=== PATIENT | female | born 1980 | race Caucasian/White ===

== ENCOUNTER 2021-02-05 22:57 | Emergency (ER) | payer MEDICAID ==
[2021-02-05] MEDS ORDERED: HYDROmorphone 1 MG/ML Syringe IVPUSH ONE ×2 (23:07→23:36)
[2021-02-05] MEDS ORDERED: Ondansetron 4 MG/2 ML SDV IVPUSH ONE (23:07)
--- NOTE | 2021-02-05 23:13 | EDM.PDOC ---
ED HPI GENERAL MEDICAL PROBLEM - General Chief Complaint: Lower Extremity Injury/Pain Stated Complaint: YUMIKO AMB Time Seen by Provider: 02/05/21 23:00 Source of Information: Reports: Patient History Limitations: Reports: No Limitations - History of Present Illness INITIAL COMMENTS - FREE TEXT/NARRATIVE: Ms. Gomez is a very pleasant 40-year-old woman who is now brought to EMS with a right ankle injury. She states that she fell off of a barstool at home around 22:00 tonight, entangling her right foot in the foot rest. There is a visible deformity to the right ankle, with the foot appearing to be laterally dislocated. She states that she is otherwise uninjured. No prior right ankle injury. A foam splint was applied per EMS. EMS additionally gave her 100 mcg of fentanyl en route to the ED. The patient states that she drinks 2 shots of alcohol tonight, but later acknowledged that she drinks 1 pint of vodka per day. Her last food intake was yesterday, 02/04/2021. Here in the ED, the patient was initially found to be tachycardic at 119 bpm. She is otherwise hemodynamic stable, afebrile, saturating 99% on room air. She appears to be somewhat uncomfortable, although in no acute distress. Prior to tonight, the patient denies having a recent fever, chills, sore throat, ear pain, nasal or sinus congestion, cough, dyspnea, chest pain, palpitations, nausea, vomiting, constipation, diarrhea, abdominal pain, urinary symptoms, recent weight gain or weight loss, recent bloody bowel movements or black bowel movements, recent joint aches, headaches, or rashes. The patient does not have a PCP. Her Neurosurgeon is Dr. Kristofer Coats. She has received a single Pfizer vaccination. No influenza vaccination this season. Right Ankle Pain Score (Numeric/FACES): 9 - Related Data Allergies Allergy/AdvReac Type Severity Reaction Status Date / Time No Known Allergies Allergy Verified 01/10/15 12:02 Home Meds: Home Meds Amoxicillin/Clavulanate K [Augmentin 875 MG/125 MG] 1 tab PO Q12HR #20 tablet 01/10/15 [Rx] Ciprofloxacin HCl/Dexameth [Ciprodex Otic Suspension] 7.5 ml EARLF BID #1 bottle 01/10/15 [Rx] traMADol [Ultram] 50 mg PO Q6H PRN #20 tab 01/10/15 [Rx] Acetaminophen/oxyCODONE [Percocet 325-5 MG] 1 - 2 tab PO Q6H PRN #30 tab 01/12 10/31 [Rx] Past Medical History Cardiovascular History: Reports: Hypertension (untreated) Psychiatric History: Reports: Addiction (alcohol), Anxiety (untreated), Depression (untreated) - Past Surgical History GI Surgical History: Reports: Appendectomy, Cholecystectomy (2012), Hernia, Abdominal (umbilical, x 2) Female Surgical History: Reports: Section (x 2), Tubal Ligation Neurological Surgical History: Reports: Lumbar Spine (laminectomy, microdiscectomy, fusion) Other Musculoskeletal Surgeries/Procedures:: back sx Social & Family History - Tobacco Use Tobacco Use Status *Q: Current Every Day Tobacco User Years of Tobacco use: 26 Packs/Tins Daily: 0.5 Packs/Tins Daily Comment: Down from 1 ppd Tobacco Use Comment: Started smoking 1994 - Alcohol Use Alcohol Use History: Yes Days Per Week of Alcohol Use: 7 Number of Drinks Per Day: 11 Total Drinks Per Week: 77 Alcohol Use Frequency: Daily - Recreational Drug Use Recreational Drug Use: Yes Drug Use in Last 12 Months: Yes Recreational Drug Type: Reports: Marijuana/Hashish (smokes on occasion) - Living Situation & Occupation Living situation: Reports: Single, with Family (Son) Occupation: Unemployed Review of Systems - Review of Systems Review Of Systems: Comprehensive ROS is negative, except as noted in HPI. ED EXAM, GENERAL - Physical Exam Exam: See Below Exam Limited By: No Limitations General Appearance: Alert, WD/WN, No Apparent Distress Extremities: Other (Lateral dislocation of the right foot, with tenting of the skin and a small abrasion over the medial malleolus. Surprisingly, a strong dorsalis pedis pulse is present.) ED TRAUMA EXTREMITY PROCEDURES - Joint Reduction Right Ankle Sedation: Hematoma/Fracture Block (per Dr. Bowser) Pre-Procedure NV Status: Normal Post-Procedure NV Status: Normal Technique: Traction/Counter Traction Number of Attempts: Other: (Ankle always reduced with attempt, but would often re-dislocate) Post-Reduction Imaging: Completely Reduced, Fracture Seen Joint Reduction Complications: No - Splinting Right Lower Extremity Splint Site: Right ankle Pre-Procedure NV Status: Normal Post-Procedure NV Status: Normal Splint Material: Plaster Splint Design: Stirrup, Posterior Applied & Form Fitted By: Provider (Dr. Bowser) Provider Post-Splint Application NV Check: NV Status Normal, Good Position Complications: No Course - Vital Signs Last Recorded V/S: Last Vital Signs Temp 36.8 C 02/05/21 23:05 Pulse 119 H 02/05/21 23:05 Resp 18 02/05/21 23:05 BP 119/69 02/05/21 23:05 Pulse Ox 99 02/05/21 23:05 - Orders/Labs/Meds Meds: Medications Discontinued Medications Generic Name Dose Route Start Last Admin Trade Name Freq PRN Reason Stop Dose Admin Hydromorphone HCl 1 mg 02/05/21 23:07 02/05/21 23:10 Hydromorphone 1 Mg/Ml Syringe IVPUSH 02/05/21 23:08 1 mg ONETIME ONE Administration Hydromorphone HCl 1 mg 02/05/21 23:36 02/05/21 23:40 Hydromorphone 1 Mg/Ml Syringe IVPUSH 02/05/21 23:37 1 mg ONETIME ONE Administration Lidocaine HCl Confirm 02/06/21 00:48 02/06/21 01:00 Lidocaine 1% 30 Ml Sdv Administered 02/06/21 00:49 Not Given Dose 30 ml .ROUTE .STK-MED ONE Lidocaine HCl 30 ml 02/06/21 00:58 02/06/21 01:01 Lidocaine 1% 50 Ml Mdv INJECT 02/06/21 00:59 30 ml ONETIME ONE Administration Lidocaine HCl 30 ml 02/06/21 01:00 02/06/21 01:01 Lidocaine 1% 50 Ml Mdv INJECT 02/06/21 01:01 Not Given ONETIME ONE Midazolam HCl Confirm 02/06/21 00:49 02/06/21 01:00 Midazolam 1 Mg/Ml 2 Ml Sdv Administered 02/06/21 00:50 Not Given Dose 2 mg .ROUTE .STK-MED ONE Midazolam HCl 2 mg 02/06/21 00:56 02/06/21 00:59 Midazolam 1 Mg/Ml 2 Ml Sdv IVPUSH 02/06/21 00:57 2 mg ONETIME ONE Administration Ondansetron HCl 4 mg 02/05/21 23:07 02/05/21 23:09 Ondansetron 4 Mg/2 Ml Sdv IVPUSH 02/05/21 23:08 4 mg ONETIME ONE Administration - Re-Assessments/Exams Free Text/Narrative Re-Assessment/Exam: 02/05/21 23:13 The right foot is laterally dislocated, and there is likely a fracture involved, as well. I have ordered x-rays to evaluate, along with some IV Dilaudid and IV Zofran. 02/05/21 23:29 4-view radiographs of the right ankle appear to demonstrate a lateral dislocation of the talus off the tibia. The distal fibula is fractured with complete lateral displacement. Likely laterally displaced distal tibial fracture. Formal read per the Radiologist pending. 02/05/21 23:59 After the patient was given a second dose of Dilaudid 1 mg, I applied traction, plantarflexion, and medial force to the right foot, successfully reducing the dislocation, however, the ankle is very unstable, and while it felt like it was reduced while I was applying the splint, it is possible that the ankle dislocated while applying the splint. I have ordered post-reduction x-rays to evaluate. 02/06/21 00:02 Preliminary review of the AP view of the splinted ankle appears to demonstrate lateral dislocation of the talus to the tibia. 02/06/21 00:[address] Bowser at 00:20. He feels that an Ortho-Glass splint is not going to be adequate to keep the ankle reduced - it needs a plaster splint. He will come to the ED to assist me with that. 02/06/21 01:05 Dr. Bowser performed a hematoma block, reduced the ankle, and placed a plaster splint. The patient tolerated the procedure well. Post-reduction PA and lateral x-rays show maintained reduction of the ankle. Dr. Bowser would still like us to obtain a CT of the ankle. He would like to see the patient in his office this coming week, to arrange for outpatient surgery. 02/06/21 03:13 CT of the right ankle without contrast is read by [facility] as: Closed bimalleolar fractures as above. 2. Possible tiny avulsion fracture of the posterior malleolus additionally. 02/06/21 03:18 CT results discussed with the patient. I was going to discharge her home with crutches, but she stated that she already has crutches at home, plus a neighbor has a knee scooter that she can use. I will give her a prescription for Bronx. She is to ice and elevate her right ankle as much as possible over the next few days, to help minimize swelling. She is to contact the office of Dr. Bowser in the morning, to make an appointment to see him next week. Departure - Departure Time of Disposition: 03:19 Disposition: Home, Self-Care 01 Condition: Good Clinical Impression: Closed bimalleolar fracture of right ankle - Discharge Information *PRESCRIPTION DRUG MONITORING PROGRAM REVIEWED*: Not Applicable *COPY OF PRESCRIPTION DRUG MONITORING REPORT IN PATIENT JENNIFER: Not Applicable Prescriptions: Acetaminophen/oxyCODONE [Percocet 325-5 MG] 1 - 2 tab PO Q6H PRN #30 tab PRN Reason: Pain (Severe 7-10) Instructions: Ankle Fracture Referrals: PCP,None [Primary Care Provider] - Tay Bowser MD [Physician] - Kristofer Coats MD [Ordering Only Provider] - Forms: ED Department Discharge Additional Instructions: You were seen in the emergency room after your foot was caught in a barstool when you fell, injuring your right ankle. Work-up in the ER included x-rays and a CT scan of your right ankle. The x-rays and CT scan confirmed that you have a bimalleolar fracture. Your right ankle was reduced (put back into place) in the ER, and a plaster splint applied. We recommend that you ice and elevate your right ankle as much as possible over the next 2 to 3 days, to help minimize swelling. The splint cannot get wet, and it is imperative that you not bear any weight on the splint, as it will break easily. Either use crutches or a knee scooter to get around. We recommend that you take [id number] ibuprofen, 3 tablets (600 mg) every 8 hours, with food, [id number] initially, then as needed for discomfort. You have been provided with a prescription for the opioid pain reliever Percocet. You may take 1 to 2 tablets of Bronx up to every 6 hours, as needed for pain not relieved by ibuprofen. If you take Percocet, do not drive or op erate heavy machinery for 12 hours afterwards. Percocet may cause constipation, so consider taking a stool softener. Please contact the office of the Orthopedic Surgeon Dr. Tay Bowser in the morning, to make an appointment to see him next week. If any other problems, please do not hesitate to return to the ER.
[2021-02-05 23:40] VITALS: BP 119/69; PULSE 119
[2021-02-06] MEDS ORDERED: Lidocaine 1% 30 ML SDV ONE (00:48)
[2021-02-06] MEDS ORDERED: Midazolam 1 MG/ML 2 ML SDV ONE (00:49)
[2021-02-06] MEDS ORDERED: Midazolam 1 MG/ML 2 ML SDV IVPUSH ONE (00:56)
[2021-02-06] MEDS ORDERED: Lidocaine 1% 50 ML MDV INJECT ONE ×2 (00:58→01:00)
--- NOTE | 2021-02-06 07:50 | CR ---
Right ankle: Single AP view of the right ankle was obtained. Comparison: Prior ankle study performed on 02/05/21. Dislocation remains but is improved from prior exam. Lateral and medial malleolus fracture are noted. External fixation is also seen. Impression: 1. Continuing dislocation which is improved from prior study. 2. Displaced lateral and medial malleolus fractures. Diagnostic code #3
--- NOTE | 2021-02-06 07:50 | CT ---
CT right ankle Technique: Multiple axial sections through the right ankle were obtained. Reconstructed coronal and sagittal images were obtained. Comparison: Prior ankle plain film studies performed earlier on the same day (1:04 AM and 12:03 AM). Findings: Previous dislocation at the tibiotalar joint has been reduced. Mild subluxation is noted within this joint. Mildly displaced medial malleolus fracture is noted. Mildly displaced lateral malleolus fracture is noted. There is minimal fracture within the posterior malleolus being seen. Tibia and visualized talar bones and calcaneus show no acute abnormality. Impression: 1. Previous tibiotalar dislocation has been reduced. Mild subluxation is noted. 2. Displaced medial malleolus and lateral malleolus fractures. 2. Minimal posterior malleolus fracture. Diagnostic code #3 I agree with preliminary report from [facility], finalized on 02/06/21, 3:35 AM CDT, code 1
--- NOTE | 2021-02-06 07:50 | CR ---
Right ankle: AP and lateral views of the right ankle were obtained. Comparison: Prior right ankle study performed earlier on the same day (12:03 AM). Previous dislocation has been reduced. Displaced medial and lateral malleolus fractures are seen. Overlying artifact is seen. Impression: 1. Reduced dislocation with persistent displaced medial and lateral malleolus fractures. Diagnostic code #3
--- NOTE | 2021-02-06 07:50 | CR ---
Right ankle: 4 views of the right ankle were obtained. Comparison: No prior ankle study is available. Dislocation is seen at the tibiotalar joint. Trimalleolar fracture is noted. Lateral and medial malleolus fractures are displaced. Minimal posterior malleolus fracture is seen. Diffuse soft tissue swelling is noted. Impression: 1. Tibiotalar dislocation. 2. Trimalleolar fracture which shows displacement of the lateral and medial malleolus. Diagnostic code #3
== END 2021-02-06 03:59 | disposition home or self-care (01) ==
LOC: JD.ED 22:57
DX: S82.841A Displaced bimalleolar fracture of right lower leg, initial encounter for closed fracture (principal); I10 Essential (primary) hypertension; Z72.0 Tobacco use; W17.89XA Other fall from one level to another, initial encounter; Y92.009 Unspecified place in unspecified non-institutional (private) residence as the place of occurrence of the external cause
CPT/HCPCS: 27810; 73600-26-RT; 73600-RT; 73610-26-RT; 73610-RT; 73700-26-RT; 73700-RT; 96374; 96375; 99284-25; J1170; J2001; J2250; J2405

== ENCOUNTER 2021-02-20 10:27 | Day surgery (SDC) | payer MEDICAID ==
--- NOTE | 2021-02-19 11:30 | PCM.PREANE ---
Preanesthetic Assessment - Procedure Proposed Procedure: Right ORIF Right bimalleolar ankle fracture. - Anesthesia/Transfusion/Family Hx Anesthesia History: Prior Anesthesia Without Reaction Family History of Anesthesia Reaction: No Transfusion History: No Prior Transfusion(s) Intubation History: Unknown - Review of Systems General: No Symptoms Pulmonary: No Symptoms (Smoker: 1/2 ppd times 26 years./ Marijuana: rarely. ETOH: last drink 4 days ago.) Cardiovascular: No Symptoms Gastrointestinal: No Symptoms (GERD:none noted currently), Nausea Neurological: No Symptoms (History of back surgery (2006)), Headache (05/23), Numbness (bilateral fingers noted from prior spine injection.), Seizure (02/06/2021: Seizure?? patient wonders if it was from abstaining from ETOH abrubtly.), Tingling (Right sided lower back pain with Right sciatica. occasionally.) Other: Reports: Easy Bruising, Liver Problems (Elevated liver function: history of ETOH abuse.), Sinus Problem, Depression, Anxiety - Physical Assessment NPO Status Date: 02/20/21 NPO Status Time: 04:00 Vital Signs: HR: 112 Sat: 99% Temp: 99 B/P: 121/82 Resp: 17 Height: 1.7 m Weight: 71 kg ASA Class: 2 Mental Status: Alert & Oriented x3 Airway Class: Mallampati = 2 Dentition: Reports: Normal Dentition, Caries Thyro-Mental Finger Breadths: 3 Mouth Opening Finger Breadths: 3 ROM/Head Extension: Full Lungs: Clear to Auscultation, Normal Respiratory Effort Cardiovascular: Regular Rate, Regular Rhythm, No Murmurs - Lab Values: All labs reviewed and noted and within acceptable ranges to proceed with scheduled procedure. - Imaging/EKG Impressions: CXR: negative - Allergies Allergies/Adverse Reactions: Allergies Allergy/AdvReac Type Severity Reaction Status Date / Time No Known Allergies Allergy Verified 02/19/21 15:44 - Anesthesia Plan Pre-Op Medication Ordered: None - Acknowledgements Anesthesia Type Planned: General Anesthesia (Right popliteal nerve block/Saphenous Nerve block under US guidance for post operative pain control requested by Dr. 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: Psychiatric History: Reports: Addiction, Anxiety, Depression - Past Surgical History GI Surgical History: Reports: Appendectomy, Cholecystectomy, Hernia, Abdominal Female Surgical History: Reports: Section, Tubal Ligation Neurological Surgical History: Reports: Lumbar Spine Other Musculoskeletal Surgeries/Procedures:: back sx - HOME MEDS Home Medications: Home Meds Apixaban [Eliquis] 2.5 mg PO BID #84 tablet 02/19/21 [Rx] oxyCODONE 5 - 10 mg PO Q4H PRN #30 tab 02/19/21 [Rx] - CURRENT (IN HOUSE) MEDS Current Meds: Current Medications Lactated Ringer's (Ringers, Lactated) 1,000 mls @ 125 mls/hr IV ASDIRECTED SOLOMON Stop: 02/20/21 23:00 Lidocaine/Sodium Bicarbonate (Lidocaine 1%/Sod Bicarbonate In Ns 8.4% 1 Ml Syringe) 0.25 ml IDERM ONETIME PRN PRN Reason: Prior to IV Start Stop: 02/20/21 18:00 Sodium Chloride (Sodium Chloride 0.9% 10 Ml Syringe) 10 ml FLUSH ASDIRECTED PRN PRN Reason: Keep Vein Open Stop: 02/20/21 18:00
--- NOTE | 2021-02-19 11:50 | PCM.SN.2 ---
- Free Text/Narrative Note: Anesthesia Note: Right Popliteal Nerve Block under US guidance for postoperative pain control requested by Dr. Bowser. Time Out: 1137 Start: 1137 Stop: 1208 Patients chart, allergies, and medication list reviewed. Popliteal nerve block risks and benefits discussed with patient. Patient agrees to proceed and consent signed. Patient positioned prone and comfort confirmed. All monitors/alarms on along with oxygen placed at 2LPM nasal cannula. IV sedation: Versed 4mg IV, and Fentanyl 100mcg IV given, and Dilaudid 1mg IV. Right posterior knee prepped times two chloropreps. Sterile gloves and sterile us probe cover utilized with sterile technique noted. Right popliteal artery found via US with corresponding tibial and peroneal nerves noted. US probe moved cephalad to the point of both nerves adjoining. Under US guidance 2 mls of 1% lidocaine utilized for localization. 20 gauge 4 inch stimuplex needle advanced under US guidance. Nerve stimulation at 0.5mv noted with foot plantar/dorsi flexion observed. 20mls of 0.5% ropivacaine with 1:200,000 epinephrine injected incrementally with negative aspirations noted. Patient tolerated procedure well. Patient turned supine and 10ml's of 0.5 % ropivacaine with 1:200,000 epinephrine injected around the right saphenous nerve within the right adductor canal under US guidance. Sterile technique performed as well, with site prepped with 2 chloroprep's. Thank you! Jaqueline TURCIOS
[~2021-02-20 10:27] MED LIST: Bupivacaine 0.25% 10 ML SDV ONE; Lactated Ringers 1,000 ML IV SCH; Lidocaine 1%/Sod Bicarbonate in NS 8.4% 1 ML Syringe IDERM PRN; Sodium Chloride 0.9% 10 ML Syringe FLUSH PRN
[2021-02-20] MEDS ORDERED: Lactated Ringers 1,000 ML ONE ×2 (10:44→13:37)
[2021-02-20] MEDS ORDERED: Ketorolac 30 MG/ML SDV ONE (10:44)
[2021-02-20] MEDS ORDERED: ceFAZolin 1 GM Vial ONE (10:44)
[2021-02-20] MEDS ORDERED: Rocuronium 50 MG/5 ML Vial ONE (10:44)
[2021-02-20] MEDS ORDERED: Ondansetron 4 MG/2 ML SDV ONE (10:44)
[2021-02-20] MEDS ORDERED: Dexamethasone 4 MG/ML 5 ML MDV ONE (10:44)
[2021-02-20] MEDS ORDERED: HYDROmorphone 1 MG/ML Syringe ONE ×2 (10:45→12:55)
[2021-02-20] MEDS ORDERED: fentaNYL 250 MCG/5 ML SDV ONE (10:45)
[2021-02-20] MEDS ORDERED: Midazolam 1 MG/ML 2 ML SDV ONE ×2 (10:45→11:32)
[2021-02-20] MEDS ORDERED: Propofol 200 MG/20 ML SDV ONE (10:45)
[2021-02-20] MEDS ORDERED: Lidocaine 1% 2 ML ONE (10:49)
[2021-02-20] MEDS ORDERED: Ropivacaine 0.5% 5 MG/ML 30 ML SDV ONE (10:50)
[2021-02-20] MEDS ORDERED: EPINEPHrine 1 MG/ML SDV ONE (10:50)
[2021-02-20] MEDS ORDERED: fentaNYL 100 MCG/2 ML SDV ONE (13:00)
[2021-02-20] MEDS ORDERED: diphenhydrAMINE 50 MG/ML SDV IVPUSH PRN (13:01)
[2021-02-20] MEDS ORDERED: Midazolam 1 MG/ML 2 ML SDV IVPUSH PRN (13:01)
[2021-02-20] MEDS ORDERED: ePHEDrine 50 MG/ML SDV IVPUSH PRN (13:01)
[2021-02-20] MEDS ORDERED: fentaNYL 100 MCG/2 ML SDV IVPUSH PRN (13:01)
[2021-02-20] MEDS ORDERED: Ondansetron 4 MG/2 ML SDV IVPUSH PRN (13:01)
[2021-02-20] MEDS ORDERED: HYDROmorphone 0.5 MG/0.5 ML Syringe IVPUSH PRN (13:01)
[2021-02-20] MEDS ORDERED: Albuterol 0.083% 2.5 MG/3 ML Neb Soln NEB PRN (13:01)
[2021-02-20] MEDS ORDERED: Phenylephrine 1% 10 MG/ML SDV ONE (13:03)
[2021-02-20] MEDS ORDERED: Ketamine 500 mg/10 ML MDV ONE (13:14)
--- NOTE | 2021-02-20 14:32 | PCM.POSTAN ---
POST ANESTHESIA ASSESSMENT - MENTAL STATUS Mental Status: Alert - VITAL SIGNS Vital Signs: Last Vital Signs Temp 98.2 02/20/21 1425 Pulse 121 02/20/21 1425 Resp 12 02/20/21 1425 BP 123/70 02/20/21 1425 Pulse Ox 100% 02/20/21 1425 - RESPIRATORY Respiratory Status: Respiratory Rate WNL, Airway Patent, O2 Saturation Stable, Supplemental Oxygen - CARDIOVASCULAR CV Status: Pulse Rate WNL, Blood Pressure Stable - GASTROINTESTINAL GI Status: No Symptoms - POST OP HYDRATION Hydration Status: Adequate & Stable
--- NOTE | 2021-02-20 14:37 | PCM48HPAN ---
Post Anesthesia Note - EVALUATION WITHIN 48HRS OF ANESTHETIC Vital Signs in Normal Range: Yes Patient Participated in Evaluation: Yes Respiratory Function Stable: Yes Airway Patent: Yes Cardiovascular Function Stable: Yes Hydration Status Stable: Yes Pain Control Satisfactory: Yes Nausea and Vomiting Control Satisfactory: Yes Mental Status Recovered: Yes Vital Signs: Last Vital Signs Temp 36.8 C 02/20/21 14:25 Pulse 124 H 02/20/21 14:25 Resp 12 02/20/21 14:25 BP 123/70 02/20/21 14:25 Pulse Ox 100 02/20/21 14:25
[2021-02-20] MEDS ORDERED: oxyCODONE 5 MG Tab PO ONE (15:30)
[2021-02-20 15:31] VITALS: BP 120/92; PULSE 102
--- NOTE | 2021-02-20 16:40 | CR ---
Right ankle: 5 views of the right ankle were obtained utilizing C-arm device in the operating room. Comparison: Prior right ankle study of 02/06/[address] right ankle study of 02/06/21. Study shows reduction of previous fractures. Plate and screws are noted within the distal fibula. Study shows 2 screws placed within the medial malleolus. Ankle mortise is symmetric. Fluoroscopy time is given as 13.5 seconds. Impression: 1. Procedural study as described above. Diagnostic code #2
--- NOTE | 2021-03-05 08:44 | PCM.OPNOTE ---
- General Post-Op/Procedure Note Date of Surgery/Procedure: 02/20/21 Operative Procedure(s): open reduction internal fixation right bimalleolar ankle fracture Pre Op Diagnosis: right bimalleolar ankle fracture Post-Op Diagnosis: Same Anesthesia Technique: General LMA, Regional Block Primary Surgeon: Tay Bowser Anesthesia Provider: Jaqueline Flaherty Cook Mayonnaise: Evonne Darden EBL in mLs: 5 Complications: None Condition: Good
--- NOTE | 2021-03-05 10:17 | OR ---
DATE OF OPERATION: 02/20/2021 SURGEON: Tya Bowser MD OPERATION PERFORMED: Open reduction and internal fixation of right bimalleolar ankle fracture. PREOPERATIVE DIAGNOSIS: Right bimalleolar ankle fracture. POSTOPERATIVE DIAGNOSIS: Right bimalleolar ankle fracture. ANESTHESIA: General LMA with regional block. ANESTHESIA PROVIDER: Jaqueline Flaherty CRNA GENERAL MEDICAL PRACTITIONER: Evonne Darden PA-C. ESTIMATED BLOOD LOSS: Less than 5 mL. COMPLICATIONS: None. CONDITION: Stable. DESCRIPTION OF PROCEDURE: The patient was identified in the preoperative holding area. Proper site was marked and identified by the surgeon. The patient was taken back to the operative theater, where after adequate anesthesia, a nonsterile tourniquet was applied to the right lower extremity. Right lower extremity was sterilely prepped and draped in the usual sterile fashion. OR time-out was performed. The patient received 2 g IV Ancef. Right lower extremity was then exsanguinated. Tourniquet was insufflated to 250 mmHg. Standard lateral incision was made over the distal fibular fracture. This was taken down the fracture site. Curette and rongeur were used to remove fracture hematoma as well as irrigating normal saline through it. Once it was cleared, the patient had a [id number] reduction clamp to reduce the fibular fracture and was found to be anatomically reduced. A 3.5 cortical screw was then placed in a lag by technique fashion from anterior to posterior and it was found to have rigid fixation. A Otto distal fibular locking plate was then placed under direct C- arm fluoroscopy and was found in proper position. Locking and nonlocking screws were then placed proximally and distally to the fracture, leaving room for a syndesmotic screw if needed. Attention was turned medially and a medial incision was made making sure to protect the neurovascular bundles. The fracture hematoma was then irrigated and rongeured out. Gltep-tn-chunk reduction clamp was then used. Two K-wires for 4.0 cannulated screws were then placed and the drill was used near cortex. Two 40 mm 4.0 cannulated screws were then placed. It was found to have anatomic reduction of the mortise on both AP, lateral, and mortise views and was stable throughout range of motion. The syndesmosis was noted to be stable at this time. Adequate saline was irrigated through both incisions. 2-0 Vicryl was used subcutaneously and oscar were used for closure of the skin. The patient had a sterile soft dressing and a posterior slab splint applied and sent to the PACU in stable condition. MELISSA /[id number]
== END 2021-02-20 16:00 | disposition home or self-care (01) ==
LOC: JD.SDS 10:27
PROVIDERS: ATTEND Orthopaedic Surgery
PROC: 0QSJ04Z Reposition Right Fibula with Internal Fixation Device, Open Approach (ICD-10-PCS; principal; 2021-02-20)
DX: S82.844A Nondisplaced bimalleolar fracture of right lower leg, initial encounter for closed fracture (principal); W07.XXXA Fall from chair, initial encounter; Y92.099 Unspecified place in other non-institutional residence as the place of occurrence of the external cause
CPT/HCPCS: 27814; 36415; 76000; 80307; 85610; 85730; A9270; C1713; C1769; C1776; J0171; J0690; J1100; J1170; J1885; J2250; J2370; J2405; J2704; J2795; J3010; J3490; J7120; 01480; 64445; 76942

== ENCOUNTER 2021-03-01 11:34 | Emergency (ER) | payer MEDICAID ==
[2021-03-01 11:57] VITALS: BP 133/80; PULSE 106
[2021-03-01] MEDS ORDERED: Sodium Chloride 0.9% 1,000 ML IV ONE (12:05)
[2021-03-01] MEDS ORDERED: Sodium Chloride 0.9% 10 ML Syringe FLUSH PRN (12:05)
[2021-03-01] MEDS ORDERED: diphenhydrAMINE 50 MG/ML SDV IVPUSH ONE (12:05)
[2021-03-01] MEDS ORDERED: Famotidine 20 MG/2 ML SDV IVPUSH ONE (12:05)
[2021-03-01] MEDS ORDERED: methylPREDNISolone Sodium Succinate 125 MG/2 ML SDV IVPUSH ONE (12:05)
--- NOTE | 2021-03-01 12:18 | EDM.PDOC ---
ED HPI GENERAL MEDICAL PROBLEM - General Chief Complaint: Allergic Reaction Stated Complaint: SWOLLEN LIPS/POSSIBLE ALLERGIC REACTION TO MED Time Seen by Provider: 03/01/21 11:52 Source of Information: Reports: Patient, RN Notes Reviewed History Limitations: Reports: No Limitations - History of Present Illness INITIAL COMMENTS - FREE TEXT/NARRATIVE: Patient is a 40-year-old female who presents to the ER for a possible allergic reaction. States she was started on Celebrex roughly 2 days ago, and since she has been taking this, she feels that her throat is swollen, and that her lips have been swollen and that she is biting the inside of her cheek. Patient states she became increasingly anxious this morning, because she is not sure if she was having an allergic reaction or not, and states that she got a little bit nauseous. No associated sick symptoms like fevers or chills, cough or shortness of breath or any sort of vomiting or diarrhea. Patient denies any other sort of food change or food ingestion, and she has no known allergies that she is aware of. - Related Data Allergies Allergy/AdvReac Type Severity Reaction Status Date / Time No Known Allergies Allergy Verified 03/01/21 11:51 Home Meds: Home Meds Apixaban [Eliquis] 2.5 mg PO BID #84 tablet 02/19/21 [Rx] Hydrocodone/Acetaminophen [HYDROcodone-Acetaminophen 5-325 MG] 1 each PO Q6H PRN #12 tablet 03/01/21 [Rx] Past Medical History HEENT History: Reports: Impaired Vision, Other (See Below) Other HEENT History: left mastoiditis, wears glasses Cardiovascular History: Reports: Hypertension Gastrointestinal History: Reports: Gastritis, GERD, Other (See Below) Other Gastrointestinal History: abdominal hernia, gallstones, reflux esophagitis Genitourinary History: Reports: UTI, Recurrent 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: Reports: Musculoskeletal History: Reports: Fracture, Other (See Below) Other Musculoskeletal History: current right ankle fracutre, right sided back pain Neurological History: Reports: Other (See Below) Other Neuro History: lumbosacral radiculopathy, lumbar stenosis with claudication Psychiatric History: Reports: Addiction, Anxiety, Depression Hematologic History: Reports: Anemia - Infectious Disease History Infectious Disease History: Reports: Chicken Pox - Past Surgical History GI Surgical History: Reports: Appendectomy, Cholecystectomy, EGD, Hernia, Abdominal Female Surgical History: Reports: Section, Tubal Ligation Neurological Surgical History: Reports: Laminectomy, Lumbar Spine, Other (See Below) Other Neurological Surgeries/Procedures: microdiscectomy Other Musculoskeletal Surgeries/Procedures:: back sx, surgical repair to R) ankle Social & Family History - Tobacco Use Tobacco Use Status *Q: Current Every Day Tobacco User Years of Tobacco use: 25 Packs/Tins Daily: 0.5 - Caffeine Use Caffeine Use: Reports: Soda - Alcohol Use Days Per Week of Alcohol Use: 5 Number of Drinks Per Day: 2 Total Drinks Per Week: 10 - Recreational Drug Use Recreational Drug Use: No - Living Situation & Occupation Living situation: Reports: Single, with Family (Son) Occupation: Unemployed ED ROS ALLERGIC REACTION - Review of Systems Review Of Systems: Comprehensive ROS is negative, except as noted in HPI. ED EXAM GENERAL NO PERIP PULSE - Physical Exam Exam: See Below Exam Limited By: No Limitations General Appearance: Alert, WD/WN, No Apparent Distress Throat/Mouth: Normal Inspection, Normal Lips, Normal Teeth, Normal Gums, Normal Oropharynx, Normal Voice, No Airway Compromise Neck: Normal Inspection, Supple, Non-Tender, Full Range of Motion Respiratory/Chest: No Respiratory Distress, Lungs Clear, Normal Breath Sounds, No Accessory Muscle Use, Chest Non-Tender Cardiovascular: Normal Peripheral Pulses, Regular Rate, Rhythm, No Edema GI/Abdominal: Normal Bowel Sounds, Soft, Non-Tender, No Distention, No Mass Extremities: Normal Inspection, Normal Capillary Refill Neurological: Alert, Oriented, Normal Cognition, No Motor/Sensory Deficits Psychiatric: Normal Affect, Normal Mood Skin Exam: Warm, Dry, Intact, Normal Color, No Rash Course - Vital Signs Last Recorded V/S: Last Vital Signs Temp 98.6 F 03/01/21 11:50 Pulse 106 H 03/01/21 11:50 Resp 18 03/01/21 11:50 BP 133/80 03/01/21 11:50 Pulse Ox 97 03/01/21 11:50 - Orders/Labs/Meds Orders: Active Orders 24 hr Category Date Time Status Peripheral IV Care [RC] . DIRECTED Care 03/01/21 12:05 Ordered Sodium Chloride 0.9% [Saline Flush] Med 03/01/21 12:05 Active 10 ml FLUSH ASDIRECTED PRN Peripheral IV Insertion Adult [OM.PC] Stat Oth 03/01/21 12:05 Ordered Medication Orders Sodium Chloride (Sodium Chloride 0.9% 10 Ml Syringe) 10 ml FLUSH ASDIRECTED PRN PRN Reason: Keep Vein Open Last Admin: 03/01/21 12:48 Dose: 10 ml Documented by: JANE Boston: Medications Generic Name Dose Route Start Last Admin Trade Name Freq PRN Reason Stop Dose Admin Sodium Chloride 10 ml 03/01/21 12:05 03/01/21 12:48 Sodium Chloride 0.9% 10 Ml Syringe FLUSH 10 ml ASDIRECTED PRN Administration Keep Vein Open Discontinued Medications Generic Name Dose Route Start Last Admin Trade Name Freq PRN Reason Stop Dose Admin Diphenhydramine HCl 50 mg 03/01/21 12:05 03/01/21 12:35 Diphenhydramine 50 Mg/Ml Sdv IVPUSH 03/01/21 12:06 50 mg ONETIME ONE Administration Famotidine 20 mg 03/01/21 12:05 03/01/21 12:35 Famotidine 20 Mg/2 Ml Sdv IVPUSH 03/01/21 12:06 20 mg ONETIME ONE Administration Sodium Chloride 1,000 mls @ 500 mls/hr 03/01/21 12:05 03/01/21 12:34 Normal Saline IV 03/01/21 14:04 500 mls/hr ONETIME ONE Administration Methylprednisolone Sodium Succinate 125 mg 03/01/21 12:05 03/01/21 12:35 Methylprednisolone Sodium Succinate 125 Mg/2 Ml Sdv IVPUSH 03/01/21 12:06 125 mg ONETIME ONE Administration Ondansetron HCl 4 mg 03/01/21 12:20 03/01/21 12:35 Ondansetron 4 Mg/2 Ml Sdv IVPUSH 03/01/21 12:21 4 mg ONETIME ONE Administration - Re-Assessments/Exams Free Text/Narrative Re-Assessment/Exam: 03/01/21 12:20 Patient presents to the ER for possible allergic reaction. Patient appears to be in no respiratory distress, and on physical exam, does not have any out right symptoms of an allergic reaction like hives or other skin abnormalities. Due to her reported symptoms we will try to give her some Benadryl, Solu-Medrol and Pepcid in the IV give her 1 dose of Zofran. I did tell the patient in general, that we will observe her for some time after giving her the medications, that she will likely have to discontinue use of the Celebrex. Patient verbalized understanding at this time. 03/01/21 13:46 Patient states she is feeling better at this time, due to no other systemic effects, we will not give her any sort of steroids. Patient states that she has a concurrently fractured right ankle, and "it was broken in 4 places". States that Celebrex was given to her for pain management. So we will give her a few tablets of [place] for over the weekend and have her follow-up with her regular care provider or orthopedic on Thursday for ongoing management. Departure - Departure Time of Disposition: 13:46 Disposition: Home, Self-Care 01 Condition: Good Clinical Impression: Allergic reaction caused by a drug Qualifiers: Encounter type: initial encounter Qualified Code(s): T78.40XA - Allergy, unspecified, initial encounter - Discharge Information *PRESCRIPTION DRUG MONITORING PROGRAM REVIEWED*: Yes *COPY OF PRESCRIPTION DRUG MONITORING REPORT IN PATIENT JENNIFER: No Instructions: Allergies, Adult, [id number] Referrals: Lakia Mondragon NP [Primary Care Provider] - Forms: ED Department Discharge Additional Instructions: You were seen in the ER today for your suspected allergic reaction. This is thought to be due to the Celebrex that you were recently prescribed. Please do not take any more of this medication. You were given some IV medications to help relieve these symptoms, this seemed to work well for you. This included IV steroids, IV Pepcid, and IV Benadryl, along with some IV fluids. You will be started on a different pain medication for your fractured right foot. You were given a prescription for a strong pain medication, hydrocodone/acetaminophen 5/325 mg, please take 1 tab every 6 hours as needed for pain not relieved by Tylenol or ibuprofen alone. Please note this medication does contain Tylenol in it, so do not take more than 4000 mg in a 24- hour time span. These medications can be addictive, so please take as few as possible to achieve adequate pain control. These meds can also be quite constipating, recommend that you increase your oral fluid intake and take a stool softener like MiraLAX while taking these medications. Do not drive while taking this medication. This medication was electronically sent to the [place] pharmacy located in the [facility]. You will need to follow-up with your regular care provider, either later this afternoon, or on Thursday morning for ongoing pain management. Please let them know that you were seen in the ER for a suspected allergic reaction to Celebrex. Please return to the ER at any time if your symptoms change or worsen. Thank you for allowing and choosing us to be involved in your healthcare needs. Sepsis Event Note (ED) - Evaluation Sepsis Screening Result: No Definite Risk - Focused Exam Vital Signs: Vital Signs Temp Pulse Resp BP Pulse Ox 03/01/21 11:50 98.6 F 106 H 18 133/80 97 - My Orders Last 24 Hours: My Active Orders 03/01/21 12:05 Peripheral IV Care [RC] . DIRECTED Sodium Chloride 0.9% [Saline Flush] 10 ml FLUSH ASDIRECTED PRN Peripheral IV Insertion Adult [OM.PC] Stat - Assessment/Plan Last 24 Hours: My Active Orders 03/01/21 12:05 Peripheral IV Care [RC] . DIRECTED Sodium Chloride 0.9% [Saline Flush] 10 ml FLUSH ASDIRECTED PRN Peripheral IV Insertion Adult [OM.PC] Stat
[2021-03-01] MEDS ORDERED: Ondansetron 4 MG/2 ML SDV IVPUSH ONE (12:20)
== END 2021-03-01 14:25 | disposition home or self-care (01) ==
LOC: JD.ED 11:34
DX: K13.0 Diseases of lips (principal); J39.2 Other diseases of pharynx; T39.395A Adverse effect of other nonsteroidal anti-inflammatory drugs [NSAID], initial encounter; I10 Essential (primary) hypertension; Z72.0 Tobacco use; Z79.01 Long term (current) use of anticoagulants
CPT/HCPCS: 96374; 96375; 99283; J1200; J2405; J2930; J3490; J7030

== ENCOUNTER 2021-03-14 09:27 | Emergency (ER) | payer MEDICAID ==
[2021-03-14 09:51] VITALS: BP 96/67; PULSE 124
[2021-03-14] MEDS ORDERED: predniSONE 20 MG Tab PO ONE (11:02)
[2021-03-14] MEDS ORDERED: Diphenhydramine/Lidocaine/MagAl/Simethicone 119 ML Bottle PO PRN (11:04)
--- NOTE | 2021-03-14 11:56 | EDM.PDOC ---
ED HPI GENERAL MEDICAL PROBLEM - General Chief Complaint: General Stated Complaint: SKIN COMPLAINT/LEFT THIGH Time Seen by Provider: 03/14/21 09:42 Source of Information: Reports: Patient History Limitations: Reports: No Limitations - History of Present Illness INITIAL COMMENTS - FREE TEXT/NARRATIVE: 40-year-old female presents the emergency department with complaints of mouth s ores, skin lesions and conjunctivitis. Patient states that around the middle of February 2021 she developed "mouth sores". She states the initially started as small blisters on the insides of her lips and cheeks. She states that she was seen at the [facility] and diagnosed with thrush and was sent home with nystatin swish and spit. She states she has been using this for about 7 days. She states it is not getting any better and she has now noted blisters forming on the roof of her mouth. Her tongue is also sore and white and coated. She states that at the time she was seen at [facility] she was also diagnosed with bilateral conjunctivitis and was sent home with a prescription for eyedrops. She states that it does not seem to be getting any better. She also states that over the past few days she has developed painful fluid-filled ulcers to the back of her left leg the medial aspect of the dorsal side of her left leg, the medial aspect of her left elbow as well as her left upper buttock/lower back area. She states that once the blisters popped they develop a blackened center. She denies any significant medical history other than the fact that she takes Eliquis twice daily. She does admit to cigarette smoking. She states her primary care provider is Lakia Modnragon. States she does have a scheduled clinic appointment with her primary care provider for Monday, March 22, 2021. Patient denies any recent fever, chills, nausea, vomiting or diarrhea. She denies any headache or sore throat. She denies any swollen lymph nodes. She denies any blurred vision or double vision. Generalized Pain Score (Numeric/FACES): 10 - Related Data Allergies Allergy/AdvReac Type Severity Reaction Status Date / Time No Known Allergies Allergy Verified 03/14/21 09:51 Home Meds: Home Meds Apixaban [Eliquis] 2.5 mg PO BID #84 tablet 02/19/21 [Rx] Hydrocodone/Acetaminophen [HYDROcodone-Acetaminophen 5-325 MG] 1 each PO Q6H PRN #12 tablet 03/01/21 [Rx] Diphenhyd/Lidocaine/Nystatin [First-Bxn Mouthwash] 30 ml PO Q3H PRN #1 bottle 03/14/21 [Rx] predniSONE [Prednisone] 40 mg PO BID #40 tablet 03/14/21 [Rx] Past Medical History HEENT History: Reports: Impaired Vision, Other (See Below) Other HEENT History: left mastoiditis, wears glasses Cardiovascular History: Reports: Hypertension Gastrointestinal History: Reports: Gastritis, GERD, Other (See Below) Other Gastrointestinal History: abdominal hernia, gallstones, reflux esophagitis Genitourinary History: Reports: UTI, Recurrent 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: Musculoskeletal History: Reports: Fracture, Other (See Below) Other Musculoskeletal History: current right ankle fracutre, right sided back pain Neurological History: Reports: Other (See Below) Other Neuro History: lumbosacral radiculopathy, lumbar stenosis with claudication Psychiatric History: Reports: Addiction, Anxiety, Depression Hematologic History: Reports: Anemia - Infectious Disease History Infectious Disease History: Reports: Chicken Pox - Past Surgical History Head Surgeries/Procedures: Reports: None HEENT Surgical History: Reports: None Cardiovascular Surgical History: Reports: None Respiratory Surgical History: Reports: None GI Surgical History: Reports: Appendectomy, Cholecystectomy, EGD, Hernia, Abdominal Female Surgical History: Reports: Section, Tubal Ligation Endocrine Surgical History: Reports: None Neurological Surgical History: Reports: Laminectomy, Lumbar Spine, Other (See Below) Other Neurological Surgeries/Procedures: microdiscectomy Other Musculoskeletal Surgeries/Procedures:: back sx, surgical repair to R) ankle Oncologic Surgical History: Reports: None Dermatological Surgical History: Reports: None Social & Family History - Tobacco Use Tobacco Use Status *Q: Current Every Day Tobacco User Years of Tobacco use: 25 Packs/Tins Daily: 1 Used Tobacco, but Quit: No - Caffeine Use Caffeine Use: Reports: Coffee, Energy Drinks - Recreational Drug Use Recreational Drug Use: No - Living Situation & Occupation Living situation: Reports: Single, with Family (Son) Occupation: Unemployed ED ROS GENERAL - Review of Systems Review Of Systems: Comprehensive ROS is negative, except as noted in HPI. ED EXAM, GENERAL - Physical Exam Exam: See Below Exam Limited By: No Limitations General Appearance: Alert, WD/WN, Mild Distress Eye Exam: Bilateral Eye: Conjunctival Injection, EOMI, PERRL Ears: Normal External Exam, Normal Canal, Hearing Grossly Normal, Normal TMs Ear Exam: Bilateral Ear: Auricle Normal, Canal Normal, TM normal Nose: Normal Inspection Throat/Mouth: Other (Oral ulcers noted to the anterior T of inner lower lip as well as ulcers noted to the bilateral inner cheeks and the roof of the mouth. Tongue is coated and white) Head: Atraumatic, Normocephalic Neck: Normal Inspection, Supple, Non-Tender, Full Range of Motion. No: Lymphadenopathy (L), Lymphadenopathy (R) Respiratory/Chest: No Respiratory Distress, Lungs Clear, Normal Breath Sounds, No Accessory Muscle Use, Chest Non-Tender Cardiovascular: Normal Peripheral Pulses, Regular Rate, Rhythm, No Edema, No Murmur Peripheral Pulses: 2+: Radial (L), Radial (R) GI/Abdominal: Normal Bowel Sounds, Soft, Non-Tender, No Distention (Female) Exam: Deferred Rectal (Female) Exam: Deferred Back Exam: Other (Left lower back/upper buttock area with circular area of erythematous plaque noted) Extremities: Normal Inspection, Normal Range of Motion, Other (Walking boot to left lower extremity) Neurological: Alert, Oriented, Normal Cognition Psychiatric: Normal Affect, Normal Mood Skin Exam: Warm, Dry, Rash (Scattered areas of erythematous plaques, malaise, erosions and crusts on the left medial and posterior thigh, left inner elbow, and left lower back/upper buttock) Lymphatic: No Adenopathy Course - Vital Signs Text/Narrative:: As stated above, patient presents with red irritated eyes, mouth ulcers and multiple erythematous plaques, bullae, erosions and crusts on the anterior and posterior left upper extremity as well as the crease of the left elbow and left lower back. Physical exam reveals bilateral eyelids are erythematous and edematous. Conjunctive a are very injected. She does have crusty drainage noted in the inner and outer corners of both eyes. Oropharynx reveals numerous ulcerated areas to the inner lips and cheeks as well as the roof of the mouth. Tongue is coated and white. She does have a large erythematous area approximately the size of an egg on the left inner thigh. It is fluid-filled and blistering in appearance. She does have a small area noted beside the large blistered area that is now crusted and erythematous. Areas on the posterior thigh are erythematous with blackened center. She states that these are older. She also has a very small approximately the size of half millimeter erythematous circumferential areas noted to the left medial elbow area. She also has an erythematous crusting area noted to the left lower back/upper buttock area. Patient denied any recent fever, chills, nausea, vomiting or diarrhea. Suspect patient may have bullous pemphigoid. Patient states she had been taking Celebrex however this was discontinued a couple of weeks ago. Only current medication that she takes is Eliquis which is an unlikely culprit. Will obtain lab studies to include a CBC, CMP and a C-reactive protein as well as IgG levels. Patient will be started on 40 mg of prednisone. Last Recorded V/S: Last Vital Signs Temp 97.8 F 03/14/21 09:43 Pulse 124 H 03/14/21 09:43 Resp BP 96/67 03/14/21 09:43 Pulse Ox - Orders/Labs/Meds Orders: Active Orders 24 hr Category Date Time Status IGG, SERUM [REF] Stat Lab 03/14/21 11:35 Received Diphenhyd/Lidocaine/MagAl/Jenny [First-Mouthwash BLM Med 03/14/21 11:04 Active Susp] 30 ml PO ASDIRECTED PRN Medication Orders Diphenhydr/Magaldrate/Simeth/Lidoca (Diphenhydramine/Lidocaine/Magal/Simethicone 119 Ml Bottle) 30 ml PO ASDIRECTED PRN PRN Reason: Pain Last Admin: 03/14/21 11:47 Dose: 30 ml Documented by: JUDITH Labs: Laboratory Tests 03/14/21 03/14/21 Range/Units 11:35 11:35 WBC 9.75 (3.98-10.04) K/mm3 RBC 3.34 L (3.98-5.22) M/mm3 Hgb 12.1 D (11.2-15.7) gm/dl Hct 37.1 (34.1-44.9) % MCV 111.1 H D (79.4-94.8) fl MCH 36.2 H (25.6-32.2) pg MCHC 32.6 (32.2-35.5) g/dl RDW Std Deviation 56.6 H (36.4-46.3) fL Plt Count 373 H D (182-369) K/mm3 MPV 10.5 (9.4-12.3) fl Neut % (Auto) 67.5 (34.0-71.1) % Lymph % (Auto) 16.3 L (19.3-51.7) % [place] % (Auto) 14.7 H (4.7-12.5) % Eos % (Auto) 0.9 (0.7-5.8) Baso % (Auto) 0.4 (0.1-1.2) % Neut # (Auto) 6.58 H (1.56-6.13) K/mm3 Lymph # (Auto) 1.59 (1.18-3.74) K/mm3 [place] # (Auto) 1.43 H (0.24-0.36) K/mm3 Eos # (Auto) 0.09 (0.04-0.36) K/mm3 Baso # (Auto) 0.04 (0.01-0.08) K/mm3 Manual Slide Review Abnormal smear Sodium 136 (136-145) mEq/L Potassium 2.6 L D (3.5-5.1) mEq/L Chloride 96 L (98-107) mEq/L Carbon Dioxide 29 (21-32) mEq/L Anion Gap 13.6 (5-15) BUN 3 L (7-18) mg/dL Creatinine 0.6 (0.55-1.02) mg/dL Est Cr Clr Drug Dosing 118.78 mL/min Estimated GFR (MDRD) > 60 (>60) mL/min BUN/Creatinine Ratio 5.0 L (14-18) Glucose 103 H (70-99) mg/dL Calcium 8.3 L (8.5-10.1) mg/dL Total Bilirubin 1.4 H (0.2-1.0) mg/dL AST 132 H (15-37) U/L ALT 34 (14-59) U/L Alkaline Phosphatase 511 H (46-116) U/L C-Reactive Protein 9.5 H* (<1.0) mg/dL Total Protein 7.9 (6.4-8.2) g/dl Albumin 2.6 L (3.4-5.0) g/dl Globulin 5.3 gm/dL Albumin/Globulin Ratio 0.5 L (1-2) Meds: Medications Generic Name Dose Route Start Last Admin Trade Name Mandi PRN Reason Stop Dose Admin Diphenhydr/Magaldrate/Simeth/Lidoca 30 ml 03/14/21 11:04 03/14/21 11:47 Diphenhydramine/Lidocaine/Magal/Simethicone 119 Ml Bottle PO 30 ml ASDIRECTED PRN Administration Pain Discontinued Medications Generic Name Dose Route Start Last Admin Trade Name Mandi PRN Reason Stop Dose Admin Potassium Chloride 40 meq 03/14/21 12:57 03/14/21 13:08 Potassium Chloride 20 Meq Tab.Er PO 03/14/21 12:58 40 meq ONETIME ONE Administration Prednisone 40 mg 03/14/21 11:02 03/14/21 11:47 Prednisone 20 Mg Tab PO 03/14/21 11:03 40 mg ONETIME ONE Administration - Re-Assessments/Exams Free Text/Narrative Re-Assessment/Exam: 03/14/21 13:04 Hematology reveals a WBC 9.75, hemoglobin 12.1, hematocrit 37.1, platelet count 373 Chemistry reveals a sodium of 136, potassium 2.6, chloride 96, anion gap 13.6, BUN 3, creatinine 0.6 GFR greater than 60, glucose 103, calcium 8.3, total bilirubin 1.4, AST 132, ALT 34, alk phos 511, C-reactive protein 9.5 We will give the patient 40 mEq of potassium oral. Departure - Departure Time of Disposition: 13:28 Disposition: Home, Self-Care 01 Condition: Good Clinical Impression: Pemphigoid, unspecified - Discharge Information Prescriptions: Diphenhyd/Lidocaine/Nystatin [First-Bxn Mouthwash] 30 ml PO Q3H PRN #1 bottle PRN Reason: Pain predniSONE [Prednisone] 40 mg PO BID #40 tablet Instructions: Bullous Pemphigoid Referrals: Lakia Mondragon NP [Primary Care Provider] - Forms: ED Department Discharge Additional Instructions: You were seen in the emergency department today with complaints of mouth sores as well as ulcers noted to your legs, arms and lower back. Lab studies were completed. Potassium level was found to be low. While in the emergency department you received potassium supplementation. You were also sent home with potassium tablet to be taken in 4 hours with food. Suspect that conjunctivitis, oral ulcers and skin ulcers are due to bullous pemphigoid. Suspect this is likely an autoimmune response to taking Celexa however not completely sure. Treatment for this is prednisone. While in the emergency department you received 40 mg. You will need to take 40 mg twice daily for the next 10 days. Until your follow-up with your primary care provider. At that time she will likely need to take a skin biopsy and she will need to decide further course of treatment for these issues. Recommend taking it Tylenol 650 mg every 4 hours as needed for the pain. Should your condition worsen or change, do not hesitate returning to the emergency department. Sepsis Event Note (ED) - Evaluation Sepsis Screening Result: No Definite Risk - Focused Exam Vital Signs: Vital Signs Temp Pulse BP 03/14/21 09:43 97.8 F 124 H 96/67 - My Orders Last 24 Hours: My Active Orders 03/14/21 11:04 Diphenhyd/Lidocaine/MagAl/Jenny [First-Mouthwash BLM Susp] 30 ml PO ASDIRECTED PRN 03/14/21 11:35 IGG, SERUM [REF] Stat - Assessment/Plan Last 24 Hours: My Active Orders 03/14/21 11:04 Diphenhyd/Lidocaine/MagAl/Jenny [First-Mouthwash BLM Susp] 30 ml PO ASDIRECTED PRN 03/14/21 11:35 IGG, SERUM [REF] Stat
[2021-03-14] MEDS ORDERED: Potassium Chloride 20 MEQ Tab.ER PO ONE ×2 (12:57→13:27)
== END 2021-03-14 13:45 | disposition home or self-care (01) ==
LOC: JD.ED 09:27
DX: L12.9 Pemphigoid, unspecified (principal); I10 Essential (primary) hypertension; Z72.0 Tobacco use; Z79.01 Long term (current) use of anticoagulants
CPT/HCPCS: 36415; 80053; 82784; 85025; 86140; 99283; A9270; J7512

== ENCOUNTER 2021-05-20 09:02 | Inpatient (IN) | payer MEDICAID ==
[2021-05-20] MEDS ORDERED: Sodium Chloride 0.9% 10 ML Syringe FLUSH PRN (09:08)
[2021-05-20] MEDS ORDERED: Sodium Chloride 0.9% 1,000 ML IV ONE ×2 (09:12→17:18)
[2021-05-20] MEDS ORDERED: Sodium Chloride 0.9% 1,000 ML IV SCH (09:15)
[2021-05-20] MEDS ORDERED: 50% Dextrose in Water 50 ML Syringe IVPUSH ONE (10:35)
[2021-05-20] MEDS ORDERED: 50% Dextrose in Water 50 ML Syringe ONE (10:36)
[2021-05-20] MEDS: Norepinephrine 4 MG in Dextrose 5% in Water 246 ML IV SCH ×8 (10:53→21:45)
[2021-05-20] MEDS ORDERED: cefTRIAXone 2 GM in Sodium Chloride 0.9% 100 ML IV ONE (10:56)
[2021-05-20] MEDS ORDERED: Lactated Ringers 1,000 ML IV SCH (11:45)
[2021-05-20] MEDS ORDERED: Azithromycin 500 MG in Sodium Chloride 0.9% 250 ML IV ONE (12:14)
[2021-05-20] MEDS ORDERED: 50% Dextrose in Water 50 ML Syringe IVPUSH STA (12:20)
[2021-05-20] MEDS ORDERED: Cefepime 2 GM in Sodium Chloride 0.9% 50 ML IV SCH (17:30)
[2021-05-20] MEDS ORDERED: LORazepam 2 MG/ML SDV IVPUSH PRN ×2 (17:30→17:32)
[2021-05-20] MEDS ORDERED: LORazepam 2 MG/ML SDV ONE (17:42)
[2021-05-20] MEDS ORDERED: Cefepime 1 GM in Sodium Chloride 0.9% 50 ML IV SCH (18:00)
[2021-05-20] MEDS ORDERED: Vancomycin 2 GM in Sodium Chloride 0.9% 500 ML IV ONE (18:00)
[2021-05-20] MEDS ORDERED: Folic Acid 50 MG/10 ML MDV IV SCH (18:45)
[2021-05-20] MEDS ORDERED: Thiamine 200 MG/2 ML MDV IVPUSH SCH (18:45)
[2021-05-20] MEDS: Norepinephrine 4 MG/4 ML SDV ONE ×2 (18:46→20:49)
[2021-05-20] MEDS ORDERED: Pantoprazole 40 MG Vial IVPUSH SCH (19:15)
[2021-05-20] MEDS ORDERED: Hydrocortisone Sodium Succinate 100 MG/2 ML SDV IVPUSH SCH (20:00)
[2021-05-20] MEDS ORDERED: Phenylephrine 10 MG in Sodium Chloride 0.9% 99 ML IV SCH (20:30)
[2021-05-20] MEDS: Albumin 25% 12.5 GM in Premix Bag 1 BAG IV SCH ×2 (22:12→23:14)
[2021-05-20] MEDS ORDERED: Midazolam 1 MG/ML 5 ML SDV IVPUSH ONE ×2 (22:55)
[2021-05-20] MEDS ORDERED: Rocuronium 50 MG/5 ML Vial IVPUSH ONE (22:56)
[2021-05-20] MEDS ORDERED: Sodium Bicarbonate 8.4% 50 MEQ/50 ML Syringe IVPUSH ONE (23:41)
[2021-05-20] MEDS ORDERED: Sodium Bicarbonate 150 MEQ in Dextrose 5% in Water 1,000 ML IV ONE ×2 (23:45)
[2021-05-21] MEDS ORDERED: Albumin 25% 12.5 GM/50 ML BAG IV ONE (00:15)
[2021-05-21] MEDS: Albumin 25% 25 GM in Premix Bag 1 BAG IV SCH ×2 (00:18→07:58)
[2021-05-21] MEDS ORDERED: Sodium Chloride 0.9% 500 ML ONE (01:27)
[2021-05-21 04:26] VITALS: PULSE 94
[2021-05-21 08:43] VITALS: BP 70/41
== END 2021-05-21 04:31 | DRG 871 ==
LOC: JD.ED 09:02 → JD.ICU 15:12
PROVIDERS: ADMIT Emergency Medicine; ATTEND Family Medicine
PROC: 3E033XZ Introduction of Vasopressor into Peripheral Vein, Percutaneous Approach (ICD-10-PCS; principal; 2021-05-20)
DX: A41.9 Sepsis, unspecified organism (principal); R65.21 Severe sepsis with septic shock; J18.9 Pneumonia, unspecified organism; K72.00 Acute and subacute hepatic failure without coma; K85.90 Acute pancreatitis without necrosis or infection, unspecified; G92.8 Other toxic encephalopathy; G93.40 Encephalopathy, unspecified; E16.2 Hypoglycemia, unspecified; E87.2 Acidosis; E87.1 Hypo-osmolality and hyponatremia; I10 Essential (primary) hypertension; N17.9 Acute kidney failure, unspecified; D68.9 Coagulation defect, unspecified; E72.20 Disorder of urea cycle metabolism, unspecified; E86.1 Hypovolemia; D50.9 Iron deficiency anemia, unspecified; T68.XXXA Hypothermia, initial encounter; Z20.822 Contact with and (suspected) exposure to COVID-19; F15.10 Other stimulant abuse, uncomplicated; F10.20 Alcohol dependence, uncomplicated; T59.891A Toxic effect of other specified gases, fumes and vapors, accidental (unintentional), initial encounter; H54.7 Unspecified visual loss; K21.9 Gastro-esophageal reflux disease without esophagitis; F41.9 Anxiety disorder, unspecified; F32.A Depression, unspecified; D64.9 Anemia, unspecified; Z87.440 Personal history of urinary (tract) infections; M54.17 Radiculopathy, lumbosacral region; M48.062 Spinal stenosis, lumbar region with neurogenic claudication; F17.210 Nicotine dependence, cigarettes, uncomplicated; Z98.51 Tubal ligation status; Z79.82 Long term (current) use of aspirin; Z79.899 Other long term (current) drug therapy; Z90.49 Acquired absence of other specified parts of digestive tract
CPT/HCPCS: 36415; 36600; 70450; 71045; 74176; 80053; 80143; 80179; 80306; 80307; 81001; 82140; 82803; 82947; 83605 ×2; 83690; 83735; 83880; 84484; 84703; 85025; 85379; 85610; 85730; 86140; 87040 ×2; 87086; 87635; 93005; J0456; J0696; J7030 ×2; J7050; J7060; J7120; 31500; 36556; 51702; 80048; 80061; 84100; 84145; 94002; 96365; 96366; 96368; 96375; 96376; 99140; 99285-25; C9113; J0692; J1720; J2060; J2250; J2370; J3370; J3411; J3490; J7040; P9047; U0002